=== PATIENT | female | born 1995 | race Caucasian/White ===

== ENCOUNTER 2023-01-29 03:58 | Emergency (ER) | payer BC ==
[~2023-01-29] VITALS: Ht 165.1 cm; Wt 96.1 kg
[2023-01-29 04:16] VITALS: BP 128/90
[2023-01-29] MEDS ORDERED: LORAZEPAM 0.5MG TABLET PO ONE (06:30)
== END 2023-01-29 06:41 | disposition home or self-care (01) ==
LOC: ER 03:58
DX: F41.9 Anxiety disorder, unspecified (principal)
CPT/HCPCS: 99283

== ENCOUNTER 2023-01-31 21:01 | Emergency (ER) | payer BC ==
[~2023-01-31] VITALS: Ht 165.1 cm; Wt 95.5 kg
[2023-01-31 21:33] VITALS: BP 130/82
[2023-02-01] MEDS ORDERED: ALPR1TAB2 MT (01:09)
[2023-02-01] MEDS ORDERED: ALPRAZOLAM 0.5 MG TABLET PO ONE (01:15)
[2023-02-01] MEDS ORDERED: ALPRAZOLAM 0.25 MG TABLET PO NR (01:45)
== END 2023-02-01 01:53 | disposition home or self-care (01) ==
LOC: ER 21:01
DX: F41.9 Anxiety disorder, unspecified (principal); F31.9 Bipolar disorder, unspecified; Z88.0 Allergy status to penicillin
CPT/HCPCS: 99283

== ENCOUNTER 2023-02-01 16:35 | Emergency (ER) | payer BC ==
[~2023-02-01] VITALS: Ht 172.7 cm; Wt 91.0 kg
[~2023-02-01 16:35] MED LIST: ALPR1TAB2 MT
[2023-02-01 17:42] LABS: BASOPHILS % 0.4 % (0.0-2.0); EOSINOPHILS % 3.2 % (0.0-5.0); HEMATOCRIT. 40.7 % (36.0-48.0); HEMOGLOBIN. 13.9 g/dL (12.0-16.0); LYMPHOCYTES % 41.3 % (20.0-50.0); MEAN CORPUSCULAR VOLUME 87.8 fL (81.0-99.0); MEAN PLATELET VOLUME 7.9 fl (7.4-10.4); MONOCYTES % 6.4 % (2.0-8.0); NEUTROPHILS % 48.7 % (40.0-76.0); PLATELET 386 x1000/uL (130-400); RED BLOOD CELL COUNT 4.63 mill/uL (4.2-5.4); RED CELL DISTRIBUTION WIDTH 13.7 % (11.6-14.6)
[2023-02-01 17:50] LABS: CHLORIDE 106 mEq/L (98-107)
[2023-02-01 18:06] LABS: B-HCG QUANTITATIVE < 1 mIU/mL (<3)
[2023-02-01] MEDS: ACETAMINOPHEN 325MG TABLET PO ONE ×2 (18:58→19:17)
[2023-02-01] MEDS ORDERED: HYDROCODONE/ACETAMINOPHEN 5/325MG TABLET PO ONE (20:30)
[2023-02-01 20:58] VITALS: BP 144/74
== END 2023-02-01 23:10 | disposition home or self-care (01) ==
LOC: ER 16:35
DX: R10.30 Lower abdominal pain, unspecified (principal); F41.9 Anxiety disorder, unspecified; F31.9 Bipolar disorder, unspecified
CPT/HCPCS: 36415; 76830; 76856; 80053; 84702; 85025; 86850; 86900; 99284

== ENCOUNTER 2023-02-14 20:56 | Emergency (ER) | payer BC ==
[~2023-02-14] VITALS: Ht 165.1 cm; Wt 96.0 kg
[2023-02-14] MEDS ORDERED: ALPR0.25 MT (21:23)
[2023-02-14] MEDS ORDERED: ALPRAZOLAM 0.25 MG TABLET PO ONE (21:30)
[2023-02-14 22:01] VITALS: BP 150/99
== END 2023-02-14 22:01 ==
LOC: ER 20:56
DX: F41.1 Generalized anxiety disorder (principal); F31.9 Bipolar disorder, unspecified; Z79.899 Other long term (current) drug therapy; Z88.1 Allergy status to other antibiotic agents
CPT/HCPCS: 93005; 99283